=== PATIENT | female | born 1980 | race American Indian/Alaskan Native ===

== ENCOUNTER 2019-08-29 11:42 | Outpatient (CLI) | payer OTHER | END 2019-08-29 12:58 | disposition home or self-care (01) | LOC: NST 11:42 | DX: Z34.83 Encounter for supervision of other normal pregnancy, third trimester (principal) ==

== ENCOUNTER 2019-09-12 09:38 | Outpatient (CLI) | payer OTHER | END 2019-09-12 10:43 | disposition home or self-care (01) | LOC: NST 09:38 | DX: Z34.83 Encounter for supervision of other normal pregnancy, third trimester (principal) ==

== ENCOUNTER 2019-09-19 13:03 | Outpatient (CLI) | payer OTHER | END 2019-09-19 13:19 | disposition home or self-care (01) | LOC: NST 13:03 | DX: Z34.83 Encounter for supervision of other normal pregnancy, third trimester (principal) ==

== ENCOUNTER 2019-10-03 10:24 | Outpatient (CLI) | payer OTHER | END 2019-10-03 11:16 | disposition home or self-care (01) | LOC: NST 10:24 | DX: Z34.83 Encounter for supervision of other normal pregnancy, third trimester (principal) ==

== ENCOUNTER 2019-10-09 09:52 | Outpatient (CLI) | payer OTHER | END 2019-10-09 10:55 | disposition home or self-care (01) | LOC: NST 09:52 | DX: Z34.83 Encounter for supervision of other normal pregnancy, third trimester (principal) ==

== ENCOUNTER 2019-10-13 06:06 | Inpatient (IN) | payer OTHER ==
[~2019-10-13] VITALS: Ht 157.5 cm; Wt 117.0 kg
[2019-10-13] MEDS ORDERED: PRENATAL TABLE1 EACH PO ×2 (06:49→06:50)
[2019-10-13] MEDS ORDERED: LABETALOL HCL100 MG PO (06:52)
== END 2019-10-15 11:19 | disposition home or self-care (01) | DRG 807 ==
LOC: LDR 06:06 → OB/GYN 06:06
PROVIDERS: ADMIT Obstetrics & Gynecology
PROC: 10E0XZZ Delivery of Products of Conception, External Approach (ICD-10-PCS; principal; 2019-10-13)
PROC: 0UQGXZZ Repair Vagina, External Approach (ICD-10-PCS; 2019-10-13)
PROC: 3E033VJ Introduction of Other Hormone into Peripheral Vein, Percutaneous Approach (ICD-10-PCS; 2019-10-13)
PROC: 4A1HXCZ Monitoring of Products of Conception, Cardiac Rate, External Approach (ICD-10-PCS; 2019-10-13)
DX: O71.4 Obstetric high vaginal laceration alone (principal); Z37.0 Single live birth; Z3A.39 39 weeks gestation of pregnancy

== ENCOUNTER 2021-11-28 15:55 | Outpatient (CLI) | payer OTHER ==
[~2021-11-28 15:55] MED LIST: LABETALOL HCL100 MG PO; PRENATAL TABLE1 EACH PO
== END 2021-11-29 07:41 | disposition home or self-care (01) ==
LOC: NST 15:55
PROVIDERS: ATTEND Obstetrics & Gynecology
DX: Z34.83 Encounter for supervision of other normal pregnancy, third trimester (principal)

== ENCOUNTER 2021-12-30 13:15 | Inpatient (IN) | payer OTHER ==
[~2021-12-30] VITALS: Ht 160 cm; Wt 116.1 kg
[2022-01-07] MEDS ORDERED: GLYBURIDE2.5 MG PO (11:33)
== END 2022-01-10 15:31 | disposition home or self-care (01) | DRG 807 ==
LOC: LDR 01-07 10:11 → OB/GYN 01-08 15:41 → SURH 01-16 13:15
PROVIDERS: ADMIT Obstetrics & Gynecology; ATTEND Obstetrics & Gynecology
PROC: 3E0P7VZ Introduction of Hormone into Female Reproductive, Via Natural or Artificial Opening (ICD-10-PCS; 2022-01-07)
PROC: 3E033VJ Introduction of Other Hormone into Peripheral Vein, Percutaneous Approach (ICD-10-PCS; 2022-01-07)
PROC: 4A1HXFZ Monitoring of Products of Conception, Cardiac Rhythm, External Approach (ICD-10-PCS; 2022-01-07)
PROC: 10E0XZZ Delivery of Products of Conception, External Approach (ICD-10-PCS; principal; 2022-01-08)
PROC: 10907ZC Drainage of Amniotic Fluid, Therapeutic from Products of Conception, Via Natural or Artificial Opening (ICD-10-PCS; 2022-01-08)
DX: O10.02 Pre-existing essential hypertension complicating childbirth (principal); Z37.0 Single live birth; Z3A.38 38 weeks gestation of pregnancy; O24.420 Gestational diabetes mellitus in childbirth, diet controlled

== ENCOUNTER 2022-02-04 10:00 | Day surgery (SDC) | payer OTHER ==
[~2022-02-04] VITALS: Ht 160 cm; Wt 103.4 kg
[~2022-02-04 10:00] MED LIST changes: +GLYBURIDE2.5 MG PO
== END 2022-02-04 21:47 | disposition home or self-care (01) ==
LOC: CIR.AMB 10:00
PROVIDERS: ATTEND Obstetrics & Gynecology
DX: Z64.1 Problems related to multiparity (principal); Z20.822 Contact with and (suspected) exposure to COVID-19; Z86.16 Personal history of COVID-19; E66.01 Morbid (severe) obesity due to excess calories